=== PATIENT | female | born 1935 | race Caucasian/White ===

== ENCOUNTER 2020-06-20 05:46 | Day surgery (SDC) | payer OTHER ==
[2020-06-20] MEDS ORDERED: Dexmedetomidine 200 MCG/2 ML SDV ONE (06:15)
[2020-06-20] MEDS ORDERED: Ropivacaine 0.5% 5 MG/ML 30 ML SDV ONE (06:15)
[2020-06-20] MEDS ORDERED: fentaNYL 100 MCG/2 ML SDV ONE (06:17)
[2020-06-20] MEDS ORDERED: Propofol 200 MG/20 ML SDV ONE ×2 (06:17→08:19)
[2020-06-20] MEDS ORDERED: Midazolam 1 MG/ML 2 ML SDV ONE (06:18)
[2020-06-20] MEDS ORDERED: Dexamethasone 4 MG/ML 5 ML MDV ONE (06:21)
[2020-06-20] MEDS ORDERED: Lidocaine 1% 4 ML ONE (06:24)
[2020-06-20] MEDS ORDERED: Sodium Chloride 0.9% 10 ML Syringe FLUSH PRN (07:00)
[2020-06-20] MEDS ORDERED: Lactated Ringers 1,000 ML IV SCH (07:00)
[2020-06-20] MEDS ORDERED: Lidocaine 1%/Sod Bicarbonate in NS 8.4% 1 ML Syringe IDERM PRN (07:00)
[2020-06-20] MEDS ORDERED: ceFAZolin 1 GM Vial ONE (07:22)
--- NOTE | 2020-06-20 07:53 | PCM.PREANE ---
Preanesthetic Assessment - Procedure Proposed Procedure: Right total shoulder arthroplasty - Anesthesia/Transfusion/Family Hx Anesthesia History: Prior Anesthesia Without Reaction - Review of Systems General: No Symptoms Pulmonary: No Symptoms Cardiovascular: No Symptoms Gastrointestinal: No Symptoms Neurological: No Symptoms Other: Reports: Diabetes, Thyroid Problems - Physical Assessment NPO Status Date: 06/19/20 Vital Signs: Last Vital Signs Temp 97.1 F 06/20/20 06:10 Pulse 88 06/20/20 06:10 Resp 16 06/20/20 06:10 BP 163/71 H 06/20/20 06:10 Pulse Ox 93 L 06/20/20 06:10 Height: 1.55 m Weight: 48.4 kg ASA Class: 3 Mental Status: Alert & Oriented x3 Airway Class: Mallampati = 3 Dentition: Reports: Dentures (upper) Thyro-Mental Finger Breadths: 3 Mouth Opening Finger Breadths: 3 ROM/Head Extension: Limited/Partial Lungs: Clear to Auscultation, Normal Respiratory Effort Cardiovascular: Regular Rate, Regular Rhythm - Lab Values: Laboratory Last Values POC Glucose 107 mg/dL (83-110) 06/20/20 06:03 MRSA (PCR) Negative 06/12/20 10:05 - Allergies Allergies/Adverse Reactions: Allergies Allergy/AdvReac Type Severity Reaction Status Date / Time morphine Allergy Rash Verified 06/19/20 12:34 - Acknowledgements Anesthesia Type Planned: Regional Block, MAC Pt an Appropriate Candidate for the Planned Anesthesia: Yes Alternatives and Risks of Anesthesia Discussed w Pt/Guardian: Yes Pt/Guardian Understands and Agrees with Anesthesia Plan: Yes PreAnesthesia Questionnaire HEENT History: Reports: Allergic Rhinitis, Other (See Below) Other HEENT History: glaucoma, bilateral hearing loss, wears glasses, has dentures Cardiovascular History: Reports: Heart Failure, High Cholesterol, Hypertension, Other (See Below) Other Cardiovascular History: carotid artherosclerosis, aortic valve stenosis, peripheral artery disease Respiratory History: Reports: None Gastrointestinal History: Reports: Diverticulosis Genitourinary History: Reports: Other (See Below) Other Genitourinary History: urgency, renal impairments, cystocele, bladder surgery 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 Musculoskeletal History: Reports: Arthritis, Other (See Below) Other Musculoskeletal History: shoulder pain, left sciatica Neurological History: Reports: None Psychiatric History: Reports: None Endocrine/Metabolic History: Reports: Diabetes, Type II, Hypothyroidism, Other (See Below) Other Endocrine/Metabolic History: graves disease Hematologic History: Reports: None Immunologic History: Reports: None Oncologic (Cancer) History: Reports: None Dermatologic History: Reports: Other (See Below) Other Dermatologic History: seborrheic keratosis - Infectious Disease History Infectious Disease History: Reports: None - Past Surgical History Head Surgeries/Procedures: Reports: None HEENT Surgical History: Reports: None Cardiovascular Surgical History: Reports: Carotid Endarterectomy Respiratory Surgical History: Reports: None GI Surgical History: Reports: Colonoscopy Female Surgical History: Reports: None Male Surgical History: Reports: None Endocrine Surgical History: Reports: None Neurological Surgical History: Reports: None Musculoskeletal Surgical History: Reports: Other (See Below) Other Musculoskeletal Surgeries/Procedures:: left femur surgery, right wrist surgery Oncologic Surgical History: Reports: None Dermatological Surgical History: Reports: None - SUBSTANCE USE Tobacco Use Status *Q: Never Tobacco User Recreational Drug Use History: No - HOME MEDS Home Medications: Home Meds Alendronate Sodium [Fosamax] 70 mg PO Q7D 06/19/20 [History] Ammonium Lactate [Amlactin 12% Lotion] 1 dose TOP ASDIRECTED PRN 06/19/20 [History] Cholecalciferol (Vitamin D3) [Vitamin D3] 1,000 unit PO DAILY 06/19/20 [History] Elderberry Fruit and Flower [Black Elderberry 575 mg Cap] 1 cap PO DAILY 06/19/20 [History] Latanoprost/Pf [Latanoprost 0.005% Eye Drop] 1 dose EYEBOTH BEDTIME 06/19/20 [History] Levothyroxine Sodium [Levothyroxine] 125 mcg PO DAILY 06/19/20 [History] Losartan/Hydrochlorothiazide [Losartan-HCTZ 100-25 MG] 1 tab PO DAILY 06/19/20 [History] Polyvinyl Alcohol/Povidone/Pf [Refresh Classic Eye Drops] 1 dose EYEBOTH ASDIRECTED PRN 06/19/20 [History] amLODIPine Besylate [Norvasc] 5 mg PO DAILY 06/19/20 [History] atorvaSTATin [Lipitor] 80 mg PO BEDTIME 06/19/20 [History] Aspirin [Aspirin EC] 325 mg PO DAILY #40 tablet.dr 06/20/20 [Rx] traMADol [Ultram] 50 - 100 mg PO Q6H PRN #40 tab 06/20/20 [Rx] - CURRENT (IN HOUSE) MEDS Current Meds: Current Medications Lactated Ringer's (Ringers, Lactated) 1,000 mls @ 125 mls/hr IV ASDIRECTED PASCALE Stop: 06/20/20 23:00 Last Admin: 06/20/20 06:00 Dose: 125 mls/hr Documented by: Lidocaine/Sodium Bicarbonate (Lidocaine 1%/Sod Bicarbonate In Ns 8.4% 1 Ml Syringe) 0.25 ml IDERM ONETIME PRN PRN Reason: Prior to IV Start Stop: 06/20/20 18:00 Last Admin: 06/20/20 06:00 Dose: 0.25 ml Documented by: Sodium Chloride (Sodium Chloride 0.9% 10 Ml Syringe) 10 ml FLUSH ASDIRECTED PRN PRN Reason: Keep Vein Open Stop: 06/20/20 18:00 Discontinued Medications Cefazolin Sodium (Cefazolin 1 Gm Vial) Confirm Administered Dose 2 gm .ROUTE .STK-MED ONE Stop: 06/20/20 07:23 Dexamethasone (Dexamethasone 4 Mg/Ml 5 Ml Mdv) Confirm Administered Dose 20 mg .ROUTE .STK-MED ONE Stop: 06/20/20 06:22 Dexmedetomidine HCl (Dexmedetomidine 200 Mcg/2 Ml Sdv) Confirm Administered Dose 200 mcg .ROUTE .STK-MED ONE Stop: 06/20/20 06:16 Fentanyl (Fentanyl 100 Mcg/2 Ml Sdv) Confirm Administered Dose 100 mcg .ROUTE .STK-MED ONE Stop: 06/20/20 06:18 Lidocaine HCl (Xylocaine-Mpf 1%) Confirm Administered Dose 4 mls @ as directed .ROUTE .STK-MED ONE Stop: 06/20/20 06:25 Midazolam HCl (Midazolam 1 Mg/Ml 2 Ml Sdv) Confirm Administered Dose 2 mg .ROUTE .STK-MED ONE Stop: 06/20/20 06:19 Miscellaneous Medication (Phenylephrine Hcl In 0.9% Nacl 1 Mg/10 Ml Syringe) Confirm Administered Dose 1 mg .ROUTE .STK-MED ONE Stop: 06/20/20 07:36 Propofol (Propofol 200 Mg/20 Ml Sdv) Confirm Administered Dose 200 mg .ROUTE .STK-MED ONE Stop: 06/20/20 06:18 Ropivacaine (Ropivacaine 0.5% 5 Mg/Ml 30 Ml Sdv) Confirm Administered Dose 30 ml .ROUTE .STK-MED ONE Stop: 06/20/20 06:16 Tranexamic Acid (Tranexamic Acid 1,000 Mg/10 Ml Amp) Confirm Administered Dose 1,000 mg .ROUTE .STK-MED ONE Stop: 06/20/20 06:43 Vancomycin HCl (Vancomycin 1 Gm Sdv) Confirm Administered Dose 1 gm .ROUTE .STK- MED ONE Stop: 06/20/20 06:43
[2020-06-20] MEDS: Vancomycin 1 GM SDV ONE ×2 (08:01→08:36)
--- NOTE | 2020-06-20 08:10 | PCM.PRNOTE ---
- Free Text/Narrative Note: Postoperative regional pain control requested by surgeon. Pre-op Dx: Right shoulder osteoarthritis Surgical procedure: Right reverse total shoulder arthroplasty Procedure: Rt Interscalene block with U/S guidance Requesting physician: Dr. Alfonso Rojas Risks and benefits discussed with the patient preoperatively including infection, bleeding, incomplete or failed block, possible nerve damage, local anesthetic toxicity. Chart reviewed, VS stable. Permit signed. Patient in preoperative room 7, stable , alert and awake. Time out performed at 06:46. Oxygen 3L via NC. Right side of the neck was prepped with Chloraprep x 1 and allowed to dry. Midazolam IV 2 mg given. Under aseptic technique, the brachial plexus was identified under ultrasound prior to needle insertion. Local infiltration with 2mls of 1% Lidocaine. 2" Stimuplex needle #22 G was inserted under US guidance. Neuromuscular response of biceps contraction and forearm twitching elicited at 0.6 mA. Under direct visualization of needle tip the injection of 2% Lidocaine with 1:200k epinephrine (5 mls) followed by with 0.5% Ropivacaine with 1:200k epinephrine (additives 6 mg of Dexamethasone and 40 mcg of Dexmedetomidine, total of 15 mls in divided doses, maintaining negative aspiration was completed without problems. No local anesthetic toxicity was noted. Patient is awake, stable and tolerated the procedure well. Please see the attached U/S images Time: 06:46 - 06:56
--- NOTE | 2020-06-20 09:15 | CR ---
Right shoulder: 3 fluoroscopic spot views were obtained of the right shoulder utilizing C-arm device. Comparison: No prior right shoulder study is available. Study shows placement of a reverse right shoulder prosthesis. Components are aligned. No acute osseous finding is seen. Fluoroscopy time given is 5.8 seconds. Impression: 1. Procedural study as noted above. Diagnostic code #2
--- NOTE | 2020-06-20 10:46 | CR ---
Right shoulder: Frontal view of the right shoulder was obtained. Comparison: Prior operative study performed earlier on same date. Reverse right shoulder prosthesis is seen. Components are aligned. Soft tissue air is noted from the surgical procedure. Osteopenia is seen. Impression: 1. Right shoulder prosthesis. Diagnostic code #2
--- NOTE | 2020-06-20 11:44 | PCM48HPAN ---
Post Anesthesia Note - EVALUATION WITHIN 48HRS OF ANESTHETIC Vital Signs in Normal Range: Yes Patient Participated in Evaluation: Yes Respiratory Function Stable: Yes Airway Patent: Yes Cardiovascular Function Stable: Yes Hydration Status Stable: Yes Pain Control Satisfactory: Yes Nausea and Vomiting Control Satisfactory: Yes Mental Status Recovered: Yes Vital Signs: Last Vital Signs Temp 97.9 F 06/20/20 09:03 Pulse 70 06/20/20 10:30 Resp 16 06/20/20 10:30 BP 147/68 H 06/20/20 10:30 Pulse Ox 95 06/20/20 10:30 - COMMENTS/OBSERVATIONS Free Text/Narrative:: preparing for discharge home
[2020-06-20 12:14] VITALS: BP 138/74; PULSE 70
--- NOTE | 2020-06-20 12:37 | PCM.OPNOTE ---
- General Post-Op/Procedure Note Date of Surgery/Procedure: 06/20/20 Operative Procedure(s): right reverse total shoulder arthroplasty Pre Op Diagnosis: right shoulder rotator cuff tear arthropathy Post-Op Diagnosis: Same Anesthesia Technique: MAC, Regional Block Primary Surgeon: Alfonso Ashton Anesthesia Provider: Michele Acosta Vegetable Vendor: Ryanne Porter Vegetable Vendor: Janet Guzman EBL in mLs: 50 Complications: None Condition: Good Free Text/Narrative:: Intake & Output 06/19/20 06/20/20 06/20/20 22:59 06:59 14:59 Intake Total 980 Balance 980 14 stem 32+2 glenosphere 28 baseplate 4mm poly
--- NOTE | 2020-06-27 09:38 | OR ---
DATE OF OPERATION: 06/20/2020 SURGEON: Alfonso Ashton MD OPERATION PERFORMED: Right reverse total shoulder arthroplasty. PREOPERATIVE DIAGNOSIS: Right shoulder rotator cuff tear arthropathy. POSTOPERATIVE DIAGNOSIS: Right shoulder rotator cuff tear arthropathy. ANESTHESIA: MAC with regional block. ANESTHESIA PROVIDER: Namita Cole. ASSISTANTS: Ryanne Porter PA-C and Janet Guzman LPN. ESTIMATED BLOOD LOSS: 50 mL. COMPLICATIONS: None. CONDITION: Stable. DESCRIPTION OF PROCEDURE: The patient was identified in the preoperative holding area. Proper site was marked and identified by the surgeon. The patient was taken back to the operative theater where after adequate anesthesia, the patient's right upper extremity was sterilely prepped and draped in the usual sterile fashion. OR time-out was performed. The patient received 2 g IV Ancef. The patient was placed in the reverse Trendelenburg position. Standard deltopectoral incision was made. Cephalic vein was identified and was retracted laterally with the deltoid. The patient was noted to have a lot of adhesions that were taken down. Clavipectoral fascia was incised. Retractor was placed medially on the conjoined tendon. Anterior humeral circumflex vessels were ligated. Biceps tendon was identified in the groove and a pectoralis tenodesis was performed. Biceps was then resected all the way back to the level of the glenoid. The patient was noted to have almost complete tearing of the subscapularis, but the remaining fibers were peeled down. Humeral head was then dislocated. At this time, humeral head cut was completed and found to be adequate. The patient was noted to have severely soft osteoporotic bone. Anterior and posterior glenoid retractors were then placed. The patient was noted to have a very tight shoulder with scar and adhesions. The partial capsulectomy as well as removal of any remaining labrum were done at this time. Guide pin was then placed in a center-center position with roughly 5 degrees inferior tilt. 28 mm reamer was then utilized and had good bony bleeding bed. At this time, the 28 mm concentric base plate with a central compression screw was placed and had adequate fixation, and inferior and superior locking screw were then placed, and the 32 +6 glenosphere was impacted in place. Attention was turned to the humerus. Starter awl was placed down the canal. Starting with a size 10 broach, I was able to broach up to a 14 which was found to be rotationally and vertically stable, but the patient was noted to again have very severely osteoporotic bone. At this time, trial implants were placed after the calcar planer was used. The patient was noted to have too much tension on her shoulder and I was worried about fracture at this time, so at this time, we went back, took the 32 +6 glenosphere out and placed a 32 +2 glenosphere. We went back to trial the components with a +4 liner and the patient had concentrically reduced shoulder. C-arm fluoroscopy was utilized showing concentrically reduced shoulder with all components in anatomic alignment. The patient had no instability noted and no over tensioning. At this time, trial components were removed. The size 14 stem with a size 4 polyethylene liner 135 degree were then constructed on the back table and this was then impacted into the humerus. The humerus was then relocated and again C-arm fluoroscopy showed no fracture and well-aligned components. 1 L pulse lavage irrigation with Ancef was irrigated through the shoulder along with 400 mL Irrisept irrigation. Topical tranexamic acid and vancomycin powder were applied. 2-0 Vicryl was used subcutaneously, and Prineo was used for closure of the skin. The patient tolerated the procedure well and sent to the PACU in stable condition. RODERICK /[id number]
== END 2020-06-20 12:08 | disposition home or self-care (01) ==
LOC: JD.SDS 05:46
PROVIDERS: ATTEND Orthopaedic Surgery
DX: M19.011 Primary osteoarthritis, right shoulder (principal); M75.101 Unspecified rotator cuff tear or rupture of right shoulder, not specified as traumatic; M81.0 Age-related osteoporosis without current pathological fracture; J30.9 Allergic rhinitis, unspecified; I65.29 Occlusion and stenosis of unspecified carotid artery; I11.0 Hypertensive heart disease with heart failure; I50.9 Heart failure, unspecified; I35.0 Nonrheumatic aortic (valve) stenosis; E03.9 Hypothyroidism, unspecified; E78.2 Mixed hyperlipidemia; E11.9 Type 2 diabetes mellitus without complications; Z79.899 Other long term (current) drug therapy; Z79.890 Hormone replacement therapy
CPT/HCPCS: 23472; 73020; 76000; 82962; 87641; 97161; 97165; C1713; C1769; C1776; J0690; J1100; J2250; J2370; J2704; J2795; J3010; J3370; J7120; 01638; 64415; 76942; 99100

== ENCOUNTER 2021-07-03 13:53 | Emergency (ER) | payer OTHER ==
[2021-07-03 14:17] VITALS: BP 159/63; PULSE 85
== END 2021-07-03 15:52 | disposition home or self-care (01) ==
LOC: JD.ED 13:53
DX: N30.00 Acute cystitis without hematuria (principal); E78.00 Pure hypercholesterolemia, unspecified; E11.9 Type 2 diabetes mellitus without complications; E03.9 Hypothyroidism, unspecified; I10 Essential (primary) hypertension; Z88.5 Allergy status to narcotic agent; Z79.82 Long term (current) use of aspirin; Z79.899 Other long term (current) drug therapy
CPT/HCPCS: 74018; 74018-26; 81001; 87086; 99283; 99284-25

== ENCOUNTER 2023-01-15 12:34 | Emergency (ER) | payer OTHER ==
[2023-01-15 12:52] VITALS: BP 145/83; PULSE 51
== END 2023-01-15 15:00 | disposition home or self-care (01) ==
LOC: JD.ED 12:34
DX: S89.91XA Unspecified injury of right lower leg, initial encounter (principal); I10 Essential (primary) hypertension; E78.00 Pure hypercholesterolemia, unspecified; M19.90 Unspecified osteoarthritis, unspecified site; E11.9 Type 2 diabetes mellitus without complications; E03.9 Hypothyroidism, unspecified; Z86.16 Personal history of COVID-19; Z88.5 Allergy status to narcotic agent; Z79.82 Long term (current) use of aspirin; Z79.899 Other long term (current) drug therapy; W01.0XXA Fall on same level from slipping, tripping and stumbling without subsequent striking against object, initial encounter; Y92.009 Unspecified place in unspecified non-institutional (private) residence as the place of occurrence of the external cause
CPT/HCPCS: 73590-26-RT; 73590-RT; 73610-26-RT; 73610-RT; 99282; 99283

== ENCOUNTER 2023-11-18 09:18 | Emergency (ER) | payer OTHER ==
[2023-11-18 18:34] VITALS: BP 180/80; PULSE 82
== END 2023-11-18 11:23 | disposition home or self-care (01) ==
LOC: JD.ED 09:18
DX: M25.511 Pain in right shoulder (principal); G89.29 Other chronic pain; I10 Essential (primary) hypertension; E78.00 Pure hypercholesterolemia, unspecified; M19.90 Unspecified osteoarthritis, unspecified site; E11.9 Type 2 diabetes mellitus without complications; E03.9 Hypothyroidism, unspecified; Z86.16 Personal history of COVID-19; Z79.82 Long term (current) use of aspirin; Z79.899 Other long term (current) drug therapy; Z88.5 Allergy status to narcotic agent
CPT/HCPCS: 73010-26-RT; 73010-RT; 73030-26-RT; 73030-RT; 99283